=== PATIENT | male | born 1960 | race Two or more races ===

== ENCOUNTER 2016-12-20 22:09 | Emergency (ER) | payer SELFPAY ==
[2016-12-20 22:15] VITALS: PULSE 82; RESP 18; TEMP 97.2; O2SAT 99
[2016-12-20 22:34] VITALS: BP 184/117
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
== END 2016-12-20 22:45 | disposition home or self-care (01) ==
LOC: H.ER 22:09
DX: M54.9 Dorsalgia, unspecified (principal); V43.52XA Car driver injured in collision with other type car in traffic accident, initial encounter; Y92.410 Unspecified street and highway as the place of occurrence of the external cause; I10 Essential (primary) hypertension